=== PATIENT | male | born 1990 | race Caucasian/White ===

== ENCOUNTER 2017-03-14 18:01 | Emergency (ER) | payer SELFPAY ==
[~2017-03-14] VITALS: Ht 175.3 cm; Wt 71.3 kg
[~2017-03-14 18:01] MED LIST: FLOMAX0.4 MG PO; LORTAB 5-325 M1 EACH PO; MOBIC15 MG PO; NAPROSYN500 MG PO; NOHOMEMEDS; PERCOCET 5/31 TABLET PO; STAY AWAKE200 MG PO; TORADOL10 MG PO; ZOFRAN ODT4 MG PO; ZOFRAN4 MG PO; ZOFRAN8 MG PO
[2017-03-14] MEDS ORDERED: NORCO 7.5/321 TABLET PO (20:16)
[2017-03-14] MEDS ORDERED: INDOCIN50 MG PO (20:16)
[2017-03-14 20:40] VITALS: BP 128/71
== END 2017-03-14 20:45 | disposition home or self-care (01) ==
LOC: EME 18:01
DX: S83.005A Unspecified dislocation of left patella, initial encounter (principal); W10.9XXA Fall (on) (from) unspecified stairs and steps, initial encounter; X50.1XXA Overexertion from prolonged static or awkward postures, initial encounter; F17.200 Nicotine dependence, unspecified, uncomplicated
CPT/HCPCS: 73564; 99281; 99284

== ENCOUNTER 2017-09-09 00:42 | Emergency (ER) | payer SELFPAY ==
[~2017-09-09] VITALS: Ht 177.8 cm; Wt 69.3 kg
[~2017-09-09 00:42] MED LIST changes: +INDOCIN50 MG PO; +NORCO 7.5/321 TABLET PO
[2017-09-09 01:42] LABS: HEMATOCRIT 41.9 % (38.0-50.0); HEMOGLOBIN 14.1 G/DL (12.5-16.6); MCHC 33.7 G/DL (30.0-36.0); MCV 89.1 FL (86-99); PLATELET COUNT 233 K/uL (156-360); RBC DIS.WIDTH-CV 12.5 % (11.8-14.6); RBC DIS.WIDTH-SD 41.2 % (39-53); WHITE BLOOD COUNT 10.6 K/uL (4.1-10.2)
[2017-09-09 01:55] LABS: APPEARANCE CLEAR ((CLEAR)); BILIRUBIN NEGATIVE; BLOOD SMALL; COLOR STRAW ((YELLOW)); GLUCOSE (STRIP) NEGATIVE; KETONES NEGATIVE; LEUKOCYTES NEGATIVE; NITRITE NEGATIVE; PROTEIN (STRIP) NEGATIVE; SPECIFIC GRAVITY 1.009 (1.000-1.030); UROBILINOGEN 0.2 MG/DL (0.2-1.0)
[2017-09-09 01:57] LABS: CHLORIDE 108 mEq/L (99-109); POTASSIUM 3.7 mEq/L (3.7-5.4); SODIUM 143 mEq/L (136-147)
[2017-09-09 01:58] LABS: GLUCOSE 117 mg/dL (70-99)
[2017-09-09 02:02] LABS: BACTERIA RARE /HPF; CREATININE 0.8 mg/dL (0.6-1.3); EPITHELIAL CELLS NONE SEEN /HPF; GFR ESTIMATE (CALCULATED) > 59 mL/min/ (58.99-99999); MUCUS TRACE /LPF; RED BLOOD CELLS 0-5 /HPF (0-5); SERUM ETHYL ALCOHOL 172 mg/dL; UCUL ADDED? YES
[2017-09-09 02:03] LABS: AMPHETAMINE NEGATIVE (500 ng/mL); BARBITURATES NEGATIVE (200 ng/mL); BENZODIAZEPINES NEGATIVE (150 ng/mL); BUPRENORPHINE NEGATIVE (10 ng/mL); COCAINE NEGATIVE (150 ng/mL); METHADONE NEGATIVE (200 ng/mL); METHAMPHETAMINE NEGATIVE (500 ng/mL); OPIATES (MORPHINE) NEGATIVE (100 ng/mL); OXYCODONE NEGATIVE (100 ng/mL); PHENCYCLIDINE NEGATIVE (25 ng/mL); PROPOXYPHENE NEGATIVE (300 ng/mL); THC CANNABINOIDS NEGATIVE (50 ng/mL); TRICYCLIC ANTIDEPRESSANTS NEGATIVE (300 ng/mL)
[2017-09-09 02:03] LABS: UREA NITROGEN (BUN) 10 mg/dL (9-23)
[2017-09-09 05:52] VITALS: BP 129/59
== END 2017-09-09 05:52 | disposition home or self-care (01) ==
LOC: EME 00:42
PROVIDERS: Emergency Medicine
DX: F10.129 Alcohol abuse with intoxication, unspecified (principal); Y90.6 Blood alcohol level of 120-199 mg/100 ml; F32.9 Major depressive disorder, single episode, unspecified; J45.909 Unspecified asthma, uncomplicated; F17.200 Nicotine dependence, unspecified, uncomplicated; Z87.442 Personal history of urinary calculi; Z88.0 Allergy status to penicillin
CPT/HCPCS: 80048; 81003; 85027; 87086; 90837; 99281; 99284; G0480